=== PATIENT | male | born 1975 | race African-American/Black ===

== ENCOUNTER 2017-11-06 09:13 | Inpatient (IN) | payer SELFPAY ==
[2017-11-06] MEDS ORDERED: NITROGLYCERIN OINT 1 INCH/GM PACKET TOPICAL STA (09:17)
[2017-11-06] MEDS ORDERED: NITROGLYCERIN SL TABS 0.4 MG TAB SUBLINGUAL PRN (09:27)
--- NOTE | 2017-11-06 09:27 | ED ---
General Adult HPI - General Stated complaint: chest pain Time Seen by Provider: 11/06/17 09:13 Source: RN notes reviewed - History of Present Illness Initial comments: Is a 42-year-old male who has a past medical history significant for smoking and high blood pressure. Patient also has a family history is positive both mother and father had heart disease. Patient comes to the emergency department at [facility] with chest pain which she states is been ongoing intermittently over the last couple of weeks. Patient states the pain normally last 5-10 minutes but today it made him very sweaty and short of breath and it got worse with walking so he sat down and rested. Patient is on his way to the hospital pain even got worse. Patient showed up to [facility] for an abnormal EKG cardiology was called they agreed that it was an abnormal EKG and monitor the patient over to [facility] ER so that the patient could be admitted and taken to the [facility]. Patient currently is chest pain-free patient denies any recent fever chills per patient denies any abdominal pain patient denies any nausea. Review of Systems ROS Statement: Those systems with pertinent positive or pertinent negative responses have been documented in the HPI. ROS Other: All systems not noted in ROS Statement are negative. General Exam - General Exam Comments Initial Comments: GENERAL: Patient is well-developed and well-nourished. Patient is nontoxic and well- hydrated and is in no acute distress. ENT: Neck is soft and supple. No significant lymphadenopathy is noted. Oropharynx is clear. Moist mucous membranes. Neck has full range of motion without eliciting any pain. EYES: The sclera were anicteric and conjunctiva were pink and moist. Extraocular movements were intact and pupils were equal round and reactive to light. Eyelids were unremarkable. PULMONARY: Unlabored respirations. Good breath sounds bilaterally. No audible rales rhonchi or wheezing was noted. CARDIOVASCULAR: There is a regular rate and rhythm without any murmurs gallops or rubs. ABDOMEN: Soft and nontender with normal bowel sounds. No palpable organomegaly was noted. There is no palpable pulsatile mass. SKIN: Skin is clear with no lesions or rashes and otherwise unremarkable. NEUROLOGIC: Patient is alert and oriented x3. Cranial nerves II through XII are grossly intact. Motor and sensory are also intact. Normal speech, volume and content. Symmetrical smile. MUSCULOSKELETAL: Normal extremities with adequate strength and full range of motion. No lower extremity swelling or edema. No calf tenderness. LYMPHATICS: No significant lymphadenopathy is noted PSYCHIATRIC: Normal psychiatric evaluation. Medical Decision Making - Medical Decision Making EKG shows normal sinus rhythm at 60 bpm AZ interval 290 QRS is 82 QT interval 372 QTC is 395 EKG shows inverted T waves in the inferior leads as well as precordial leads V4 through V6. I spoke with cardiology Dr. Tanner he came down to see the patient almost immediately in the emergency department Disposition Clinical Impression: Unstable angina pectoris Disposition: ADMITTED IP TO THIS HOSP Referrals: None,Stated [Primary Care Provider] - 1-2 days Time of Disposition: 09:27
[2017-11-06 10:59] LABS: Creatine Kinase 389 U/L (55-170)
[2017-11-06 11:10] LABS: Creatine Kinase MB 0.9 ng/mL (0.0-2.4); Troponin I <0.012 ng/mL (0.000-0.034)
[2017-11-06] MEDS ORDERED: MIDAZOLAM 2 MG/2 ML VIAL ONE (11:19)
[2017-11-06] MEDS ORDERED: fentaNYL (PF) 50 MCG/ML 2 ML AMP ONE (11:19)
[2017-11-06] MEDS ORDERED: LIDOCAINE 1% INJ 10MG/ML (20 ML MDV) ONE (11:19)
[2017-11-06] MEDS ORDERED: SODIUM CHLORIDE 0.9% 1,000 ML IV ONE (11:25)
[2017-11-06] MEDS ORDERED: MIDAZOLAM 2 MG/2 ML VIAL IV ONE (11:34)
[2017-11-06] MEDS ORDERED: fentaNYL (PF) 50 MCG/ML 2 ML AMP IV ONE (11:34)
[2017-11-06] MEDS ORDERED: LIDOCAINE 1% INJ 10MG/ML (20 ML MDV) SQ ONE (11:36)
--- NOTE | 2017-11-06 11:47 | CONS ---
CONSULTATION DATE OF SERVICE: 11/06/2017. HISTORY: Mr. Gaffney is a 42-year-old gentleman who was transferred from [facility]. The patient has been having intermittent chest discomfort for last 2 to 3 weeks. The pain is in the substernal area and lasts for 10 to 15 minutes. It is associated with diaphoresis and he feels his heart is racing. This morning the patient had more severe chest discomfort as well as heart racing and diaphoretic. The patient was brought to [facility] Emergency Room. EKG showed T-wave inversions in the inferolateral leads with minimal J-point elevation in V3 and V4. The EKG was quite concerning. In view of that, the patient was transferred to [facility] for further evaluation with cardiac catheterization. The patient at present is comfortable. He has a history of hypertension. Denies any history of diabetes. He does smoke. Denies any history of illicit drug use. There is a family history of diabetes, patient's father did have a heart attack. PAST MEDICAL HISTORY: No history of any major surgeries. REVIEW OF THE SYSTEMS: Unremarkable. There is no history of any GI bleeding. MEDICATIONS: None. PHYSICAL EXAMINATION: At present reveals a 42-year-old gentleman who does not appear to be in any acute distress. The patient's blood pressure is 140/80 mmHg. HEENT examination is negative. Neck is supple. There is no increase in jugular venous pressure. Both the carotid pulses are felt. There is no bruit. Chest is symmetrical. Heart, the PMI is not felt. First heart sound is normal, second heart sound is widely physiologically split. Lungs are clinically clear to auscultation and percussion. Abdomen is negative. Extremities, peripheral pulsations are 2+. LABORATORY AND DIAGNOSTIC DATA: Initial troponin is negative. The creatinine is normal. EKG shows T-wave inversions in the inferolateral leads with a minimal J-point elevation in V3 and V4. IMPRESSION: 1. Recurrent chest discomfort with abnormal EKG suggestive of unstable angina, rule out non-Q-wave myocardial infarction. 2. History of hypertension. PLAN: In view of the significant EKG changes, the patient is advised urgent cardiac catheterization. The procedure and risks were fully explained to the patient and and they understand well. MMODL / IJN: [id number] /
[2017-11-06] MEDS ORDERED: IOPAMIDOL-370 125ML BTL INJ ONE (11:52)
[2017-11-06] MEDS ORDERED: IOPAMIDOL-370 50ML BTL INJ ONE (11:53)
--- NOTE | 2017-11-06 12:23 | CC ---
CARDIAC CATHETERIZATION REPORT DATE OF SERVICE: 11/06/2017. HISTORY: Mr. Gaffney is a 42-year-old gentleman who went to the [facility] Emergency room with a complaint of intermittent chest discomfort, heart racing, and palpitations associated with diaphoresis. This morning the patient had an episode for about 45 minutes. EKG showed diffuse T-wave inversions in the inferolateral leads. No prior EKG was available. He has a history of hypertension, but he does not take any medications. In view of that, the patient was recommended to have a cardiac catheterization for definitive diagnosis. PROCEDURE: The right groin was prepped and draped in the usual manner and the skin was infiltrated with 2% Xylocaine. The right femoral artery was entered using Seldinger technique. A #6- Italian sheath was placed in. Selective coronary angiography was then performed in multiple projections and left ventriculography was performed. The patient tolerated the procedure well. Moderate sedation was used. Total sedation time was 25 minutes. The left ventricular end-diastolic pressure was 12 to 16 mmHg prior to angiography. No gradient is noted across the aortic valve. SELECTIVE CORONARY ANGIOGRAPHY: 1. Left main coronary artery is normal and patent. 2. LAD is a good caliber blood vessel and gives rise to 2 good-sized diagonal branches. LAD and its branches are normal. 3. Circumflex coronary artery gives rise to a high obtuse marginal branch. It is normal. 4. Right coronary artery is dominant in distribution and gives rise to good-sized PDA branch. 5. Right coronary artery and its branches are normal. HEMODYNAMICS: Left ventricular end-diastolic pressure was 8 to 12 mmHg. No intracavitary gradient was noted. Left ventriculography revealed ejection fraction of 60%. RECOMMENDATIONS: This study does not show any significant coronary artery disease. Continue medical treatment and risk factor modification. MMODL / IJN: [id number] /
[2017-11-06] MEDS: NITROGLYCERIN OINT 1 INCH/GM PACKET TOPICAL SCH ×2 (12:38→17:39)
[2017-11-06] MEDS ORDERED: RX INFO: IV CONTRAST WAS GIVEN 1 EACH MISC MISCELLANE PRN (13:11)
--- NOTE | 2017-11-06 14:18 | P.HPIM ---
History of Present Illness H&P Date: 11/06/17 Chief Complaint: chest pain Patient is a 42-year-old -[place] male with a past medical history of hypertension, not currently on treatment, tobacco abuse, and alcohol use who initially presented to [facility] with complaints of chest pain. There he underwent extensive evaluation. His initial laboratory analysis was unremarkable and his troponin was less than 0.017. EKG showed T-wave inversion. Cardiology was contacted and asked The patient transferred here. On arrival here he was chest pain free. Arrangements were made for admission. He underwent a heart cath for possible unstable angina which did not show any significant coronary artery disease. He has been admitted to the selective care unit. Patient seen and examined at bedside. He reports 2 weeks of on and off chest pain lasting approximately 5 minutes. Today he woke up with retrosternal chest pain without radiation. It was associated with shortness of breath and palpitations. He tried to lay back down to see if it past and it did not. He felt anxious and like he needed to calm down. He then tried to walk outside to calm down. He became diaphoretic and felt dizzy and lightheaded. He also had was having shortness of breath. He states that moving exacerbated his symptoms. Today his chest pain lasted approximately 30 minutes and was more intense than he had ever experienced. He does report that he has difficulty with acid reflux approximately every day to every other day. He denies any recent cough, cold, fever, flu, nausea, vomiting, diarrhea, or dysuria. He did have some constipation this week and took magnesium citrate which resolved the issue. He was diagnosed with high blood pressure several years ago but due to a change in job he stopped his medications approximately one year ago. He has a family history of diabetes and his father suffered a myocardial infarction. He is currently chest pain-free and feels comfortable. Review of Systems Pertinent positives and negatives as discussed in HPI, a complete review of systems was performed and all other systems are negative. Past Medical History Past Medical History: Hypertension History of Any Multi-Drug Resistant Organisms: None Reported Past Surgical History: No Surgical Hx Reported Past Psychological History: No Psychological Hx Reported Smoking Status: Current every day smoker Past Alcohol Use History: Heavy Past Drug Use History: None Reported Additional History: Lives with his fiance, works at a factory, smokes approximately one pack daily and drinks alcohol 2-3 times weekly. - Past Family History Father Family Medical History: Diabetes Mellitus, Myocardial Infarction ([place]) Mother Family Medical History: Diabetes Mellitus Brother(s) Family Medical History: Diabetes Mellitus Medications and Allergies Home Medications Medication Instructions Recorded Confirmed Type No Known Home Medications 11/06/17 11/06/17 History Allergies Allergy/AdvReac Type Severity Reaction Status Date / Time No Known Allergies Allergy Verified 11/06/17 11:50 Physical Exam Osteopathic Statement: *. No significant issues noted on an osteopathic structural exam other than those noted in the History and Physical/Consult. Vitals: Vital Signs Temp Pulse Pulse Resp BP BP Pulse Ox 11/06/17 12:09 98.4 F 68 138/98 97 11/06/17 09:14 97.8 F 75 20 135/94 96 Intake and Output 11/05/17 11/06/17 11/06/17 22:59 06:59 14:59 Intake Total 120 Output Total 1 Balance 119 Intake: IV 100 Intake, IV Titration 20 Amount Sodium Chloride 0.9% 1, 20 000 ml @ 0 mls/hr IV .[facility] [employer] ONE Rx#:[id number] Output: Urine 1 Other: Weight 88.451 kg General: non toxic, no distress, appears at stated age, normal weight Derm: no unusual rashes/lesions no unusual ecchymoses, warm, dry Head: atraumatic, normocephalic, symmetric Eyes: EOMI, no lid lag, anicteric sclera, pupils equal round reactive to light ENT: Nose and ears atraumatic, no thrush, no pharyngeal erythema Neck: No thyromegaly, no cervical lymphadenopathy, trachea midline, supple Mouth: no lip lesion, mucus membranes moist Cardiovascular: S1S2 reg, no murmur, positive posterior tibial pulse bilateral, no edema, capillary refill less than 2 seconds Lungs: CTA bilateral, no rhonchi, no rales , no accessory muscle use Abdominal: soft, nontender to palpation, no guarding, no appreciable organomegaly, normal bowel sounds Ext: no gross muscle atrophy, muscle strength 5 out of 5 in all 4 extremities grossly, no contractures, Neuro: CN II-XI grossly intact, light touch intact all 4 extremities, finger to nose within normal limits, Psych: Alert, oriented, appropriate affect Results Labs: Abnormal Lab Results - Last 24 Hours (Table) 11/06/17 Range/Units 10:09 Total Creatine Kinase 389 H (55-170) U/L Comments: Laboratory work from [facility] on 11/06/17 reviewed and within normal limits. Chest x-ray: report reviewed Thrombosis Risk Factor Assmnt - DVT/VTE Prophylaxis DVT/VTE Prophylaxis: Low risk, early ambulation encouraged Assessment and Plan Assessment: Chest pain -Cardiac cath without significant disease -Check cholesterol in a.m. -Aspirin, metoprolol -Serial troponins -Telemetry GERD -Initiate PPI, suggests six-week trial. Tobacco abuse -Cessation -Nicotine replacement Obesity with BMI 30.5 -Structured outpatient weight loss Family history diabetes -Check basic metabolic profile after cath in a.m. which will contain a fasting glucose. This is elevated consider further workup. The patient is placed in observation with an anticipated less than 2 per night stay for evaluation of chest pain. Surrogate decision-maker: Robert Flores CODE STATUS:Full DVT prophylaxis: early ambulation Discussed with: Patient, nursing, ED physician Anticipated discharge date: 11/07/[address]: home A total of 55 minutes was spent on the care of this complex patient more than 50 % of the time was spent in counseling and care coordination.
--- NOTE | 2017-11-06 16:18 | XR ---
EXAMINATION TYPE: XR chest 1V portable DATE OF EXAM: 11/06/2017 COMPARISON: 12/30/2014 HISTORY: Chest pain TECHNIQUE: Single frontal view of the chest is obtained. FINDINGS: There is no focal air space opacity, pleural effusion, or pneumothorax seen. The cardiac silhouette size is upper limits of normal. The osseous structures are intact. IMPRESSION: No acute cardiopulmonary process.
[2017-11-06 16:26] LABS: Creatine Kinase 315 U/L (55-170)
[2017-11-06 16:39] LABS: Creatine Kinase MB 0.9 ng/mL (0.0-2.4); Troponin I <0.012 ng/mL (0.000-0.034)
[2017-11-06] MEDS: PANTOPRAZOLE 40 MG TABLET PO SCH (17:38)
[2017-11-06] MEDS: METOPROLOL TARTRATE 25 MG TAB PO SCH ×2 (17:40→21:33)
[2017-11-06 19:12] VITALS: BMI 30.5
[2017-11-07 07:54] LABS: Anion Gap 4 mmol/L; Blood Urea Nitrogen 15 mg/dL (9-20); Calcium 9.7 mg/dL (8.4-10.2); Carbon Dioxide 30 mmol/L (22-30); Chloride 106 mmol/L (98-107); Cholesterol 149 mg/dL (<200); Glucose 97 mg/dL (74-99); HDL Cholesterol 38 mg/dL (40-60); LDL Cholesterol,Calculated 99 mg/dL (0-99); Potassium 5.6 mmol/L (3.5-5.1); Sodium 140 mmol/L (137-145); Triglycerides 62 mg/dL (<150)
[2017-11-07] MEDS: PANTOPRAZOLE 40 MG TABLET PO SCH (08:14)
[2017-11-07] MEDS: METOPROLOL TARTRATE 25 MG TAB PO SCH (08:15)
[2017-11-07] MEDS ORDERED: NICOTINE 14MG/24HR PATCH TRANSDERM SCH (09:00)
[2017-11-07] MEDS ORDERED: ASPIRIN 325 MG TAB PO SCH (09:00)
[2017-11-07 09:25] VITALS: BP 129/75; PULSE 61; RESP 18; TEMP 98.3
--- NOTE | 2017-11-07 10:51 | P.DS ---
Providers Date of admission: 11/06/17 09:27 Attending physician: Gabriella Bear DO Consults: 11/06/17 09:27 Consult Physician Urgent Consulting Provider: [facility] Consult Reason/Comments: Unstable angina Do you want consulting provider notified?: Yes Primary care physician: Stated None - Discharge Diagnosis(es) (1) Chest pain Patient was admitted with the chest pain. He underwent cardiac catheterization that didn't show any evidence of coronary artery disease. His chest pain was not present during this hospitalization. He denied any shortness of breath or leg swelling. He describes lower sternal turning chest discomfort especially with food and if eating spicy food and laying down. In view that we discuss option of having reflex and possibly esophageal spasms. During the hospitalization pain completely resolved and he did not have any further difficulties. Patient was discharged home in view of this chest pain. Advised to take PPI and antacids and to follow-up with primary care physician. If this reflux heartburns don't resolve in 2-3 weeks with PPI consider further follow- up with gastroenterology. Current Visit: Yes Status: Acute (2) GERD (gastroesophageal reflux disease) Patient has strong heartburn sensation especially after eating food and laying down. He was given PPI and Tums as needed. He was advised to keep upright position at least 1 hour after eating and avoid food that provokes heartburns. If his heartburns pain do not improve in 2-3 weeks he was advised to discuss this further with gastroenterology for possible EGD Current Visit: Yes Status: Acute (3) Hypertension Patient was started on metoprolol which he tolerated very well. Side effects of metoprolol was discussed with the patient's. He was advised to follow-up with PCP as soon as possible and be provided details for free clinic for now until his insurance begins. He was advised to follow-up since he will need workup for secondary hypertension in the office. Current Visit: Yes Status: Acute (4) Anxiety Patient reports a history of anxiety anxiety attacks that also accompanied by chest pain and difficulty catching breath. He was advised to subluxation techniques. He is to follow-up with PCP for further management Current Visit: Yes Status: Acute Hospital Course: This is a 42-year-old male who was admitted with chest pain. He reported 2 weeks of lower retrosternal epigastric discomfort burning like heartburn sensation that The usually after eating some spicy food and very often in the middle of night is laying down. He's been trying some Tums with some relief but not complete relief. When he came to the hospital on that day the patient was more severe and more spasm like he describes. He denies any shortness of breath leg swelling nausea vomiting difficulty swallowing food pain with swallowing food On the day of discharge patient was seen and evaluated in the room and his fianc was present. He did not report any further pain or discomfort and we had a lengthy discussion about his heartburn symptoms and need for follow-up regarding his hypertension. Physical examination he was awake alert oriented testing) distress Head and neck examination was remarkable there was no JVD or masses or any masses or lesions in his mouth Lungs clear to auscultation bilaterally Cardiovascular: Regular rhythm and rate S1-S2 no murmurs rubs or gallops Abdomen: Soft nontender nondistended no epigastric tenderness no rebound no masses Extremities: No peripheral edema clubbing or cyanosis Disposition: Patient discharged home in stable condition and is to follow-up with his primary care physician as discussed Pertinent Studies: Cardiac catheterization that did not show any signs of bruising or any presence of coronary artery disease Troponins negative 3 EKG unremarkable Patient Condition at Discharge: Good Plan - Discharge Summary Discharge Rx Participant: No New Discharge Prescriptions: New Metoprolol Tartrate [Lopressor] 25 mg PO BID #20 tab Nicotine 14Mg/24Hr Patch [Habitrol] 1 patch TRANSDERM DAILY #7 patch Omeprazole 20 mg PO DAILY #30 tablet. Discharge Medication List Metoprolol Tartrate [Lopressor] 25 mg PO BID #20 tab 11/07/17 [Rx] Nicotine 14Mg/24Hr Patch [Habitrol] 1 patch TRANSDERM DAILY #7 patch 11/07/17 [ Rx] Omeprazole 20 mg PO DAILY #30 tablet. 11/07/17 [Rx] Follow up Appointment(s)/Referral(s): [facility]STA[facility]] - 1 Week Emanuel Tannre MD [STAFF PHYSICIAN] - 1 Week (Spoke to clerical receptionist. Office will call with appointment time) Patient Instructions/Handouts: *Surgery [facility] - After Heart Catheterization - [employer] Instructions, Left Heart Catheterization (DC) Activity/Diet/Wound Care/Special Instructions: resume preadmission diet and activity keep upright position at least 1 hr after eating Care Plan Goals (MU): obtaining insurance and follow up with PCP Discharge Disposition: HOME SELF-CARE
[2017-11-07] MEDS ORDERED: SODIUM POLYSTYRENE SULFONATE 15 GM/60 ML BOTTLE PO ONE (11:34)
[2017-11-07 11:59] LABS: Glucose,Whole Blood 82 mg/dL (75-99)
--- NOTE | 2017-11-07 12:14 | ECHOF ---
Referral Reason:chf MEASUREMENTS -------- HEIGHT: 170.2 cm WEIGHT: 88.5 kg BP: 105/61 RVIDd: 3.5 cm (< 3.3) IVSd: 1.5 cm (0.6 - 1.1) LVIDd: 4.1 cm (3.9 - 5.3) LVPWd: 1.4 cm (0.6 - 1.1) IVSs: 1.9 cm LVIDs: 2.9 cm LVPWs: 1.4 cm LA Diam: 3.4 cm (2.7 - 3.8) LAESV Index (A-L): 29.73 ml/m Ao Diam: 3.6 cm (2.0 - 3.7) AV Cusp: 2.5 cm (1.5 - 2.6) MV EXCURSION: 20.651 mm (> 18.000) MV EF SLOPE: 98 mm/s (70 - 150) EPSS: 0.5 cm MV E Suleman: 0.71 m/s MV DecT: 273 ms MV A Suleman: 0.60 m/s MV E/A Ratio: 1.18 RAP: 5.00 mmHg RVSP: 19.00 mmHg FINDINGS -------- Sinus rhythm. This was a technically good study. The left ventricular size is normal. There is moderate concentric left ventricular hypertrophy. O verall left ventricular systolic function is normal with, an EF between 60 - 65 %. The right ventricle is mildly enlarged. LA is midly dilated 29-33ml/m2. The right atrium is normal in size. The aortic valve is trileaflet and appears structurally normal. The mitral valve leaflets are mildly thickened. There is trace to mild mitral regurgitation. Mild tricuspid regurgitation present. Right ventricular systolic pressure is normal at < 35 mmHg. Trace/mild (physiologic) pulmonic regurgitation. The aortic root size is normal. Normal inferior vena cava with normal inspiratory collapse consistent with estimated right atrial pre ssure of 5 mmHg. There is no pericardial effusion. CONCLUSIONS -------- 1. Sinus rhythm. 2. This was a technically good study. 3. The left ventricular size is normal. 4. There is moderate concentric left ventricular hypertrophy. 5. Overall left ventricular systolic function is normal with, an EF between 60 - 65 %. 6. The right ventricle is mildly enlarged. 7. LA is midly dilated 29-33ml/m2. 8. The right atrium is normal in size. 9. The aortic valve is trileaflet and appears structurally normal. 10. The mitral valve leaflets are mildly thickened. 11. There is trace to mild mitral regurgitation. 12. Mild tricuspid regurgitation present. 13. Right ventricular systolic pressure is normal at < 35 mmHg. 14. Trace/mild (physiologic) pulmonic regurgitation. 15. The aortic root size is normal. 16. Normal inferior vena cava with normal inspiratory collapse consistent with estimated right atrial pressure of 5 mmHg. 17. There is no pericardial effusion. MOLECULAR BIOLOGIST: Ruth Carrillo RDCS
--- NOTE | 2017-11-07 12:28 | P.PN ---
Subjective Progress Note Date: 11/07/17 This is a 42-year-old -[place] gentleman with history of hypertension, nicotine dependence, who presented to the hospital with symptoms of chest discomfort. He underwent a cardiac catheterization yesterday by Dr. VC Tanner which did not reveal any significant obstructive coronary artery disease. This morning, denied any chest pain or difficulty in breathing. He's been up ambulating without any difficulty. Objective - Vital Signs Vital signs: Vital Signs Temp 98.3 F 11/07/17 08:00 Pulse 61 11/07/17 08:00 Resp 18 11/07/17 08:00 BP 129/75 11/07/17 08:00 Pulse Ox 99 11/07/17 08:00 Intake & Output 11/06/17 11/07/17 11/07/17 18:59 06:59 18:59 Intake Total 480 660 240 Output Total 1 Balance 479 660 240 Weight 88.451 kg Intake: IV 100 Intake, IV Titration 20 180 Amount Sodium Chloride 0.9% 1, 20 180 000 ml @ 0 mls/hr IV .[employer] ONE Rx#:[id number] Oral 360 480 240 Output: Urine 1 Other: Voiding Method Toilet # Voids 6 - Exam PHYSICAL EXAMINATION: GENERAL: 42-year-old -[place] gentleman in no acute distress at the time of my examination HEENT: Head is atraumatic, normocephalic. Pupils equal, round. Sclera anicteric. Conjunctiva are clear. Mucous membranes of the mouth are moist. Neck is supple. There is no elevated jugular venous pressure.] bruit is heard. HEART EXAMINATION: Heart S1, S2 normal. No murmur or gallop heard. CHEST EXAMINATION: Lungs are clear to auscultation and precussion. No chest wall tenderness is noted on palpation or with deep breathing. ABDOMEN: Soft, nontender. Bowel sounds are heard. No organomegaly noted. EXTREMITIES: 2+ peripheral pulses with no evidence of peripheral edema and no calf tenderness noted. Right groin soft, no evidence of any hematoma. NEUROLOGIC patient is awake, alert and oriented ?-3. . - Labs CBC & Chem 7: 11/07/17 06:53 Labs: Abnormal Lab Results - Last 24 Hours (Table) 11/06/17 11/07/17 Range/Units 15:39 06:53 Potassium 5.6 H (3.5-5.1) mmol/L Total Creatine Kinase 315 H (55-170) U/L HDL Cholesterol 38 L (40-60) mg/dL Assessment and Plan Plan: Assessment and plan #1 chest pain, status post cardiac catheterization which revealed nonobstructive coronary artery disease. #2 nicotine dependence #3 hypertension Plan From cardiology's perspective, patient may be able to be discharged home today. We will make him a follow-up appointment to see Dr. VC Tanner in the office post discharge. DNP note has been reviewed, I agree with a documented findings and plan of care. Patient was seen and examined.
[2017-11-07] MEDS ORDERED: LISINOPRIL 10 MG TAB PO SCH (13:15)
[2017-11-07] MEDS ORDERED: METOPROLOL TARTRATE 50 MG TAB PO SCH (21:00)
== END 2017-11-07 14:04 | disposition home or self-care (01) | DRG 287 ==
LOC: EC 09:13 → 6SEL 09:27
PROVIDERS: ADMIT Internal Medicine; ATTEND Internal Medicine
PROC: B2111ZZ Fluoroscopy of Multiple Coronary Arteries using Low Osmolar Contrast (ICD-10-PCS; principal; 2017-11-06 11:10)
PROC: B2151ZZ Fluoroscopy of Left Heart using Low Osmolar Contrast (ICD-10-PCS; principal; 2017-11-06 11:10)
PROC: 4A023N7 Measurement of Cardiac Sampling and Pressure, Left Heart, Percutaneous Approach (ICD-10-PCS; principal; 2017-11-06 11:10)
DX: R07.9 Chest pain, unspecified (principal); E66.9 Obesity, unspecified; F17.200 Nicotine dependence, unspecified, uncomplicated; F41.9 Anxiety disorder, unspecified; I10 Essential (primary) hypertension; K21.9 Gastro-esophageal reflux disease without esophagitis; Z68.30 Body mass index [BMI] 30.0-30.9, adult; Z82.49 Family history of ischemic heart disease and other diseases of the circulatory system; Z83.3 Family history of diabetes mellitus
CPT/HCPCS: 71045; 80048; 80061; 82550; 82553; 84484; 85379; 93005; 93306; 93458; 99285

== ENCOUNTER 2022-12-29 13:10 | Day surgery (SDC) | payer BC ==
[2022-12-29] MEDS ORDERED: ALPRAZolam 0.5 MG TAB PO STA (13:32)
[2022-12-29 13:45] VITALS: BP 124/65; PULSE 73; RESP 16; TEMP 97.5
--- NOTE | 2022-12-29 14:29 | US ---
ULTRASOUND GUIDED FNA LEFT NECK MASS: CLINICAL HISTORY: Enlarged left supraclavicular lymph node FINDINGS: Preliminary imaging demonstrated only a small 6 mm short axis lymph node with a normal fatty hilum. T he patient stated that the suspected lymph node\palpable abnormality had markedly decreased in size s markos his previous visit with referring clinician. No sizable mass was seen for percutaneous biopsy IMPRESSION: 1. Discontinued left neck biopsy due to no sizable lesion identified.
== END 2022-12-29 14:15 | disposition home or self-care (01) ==
LOC: RADPROMAIN 13:10
PROVIDERS: ATTEND Surgery
DX: R22.1 Localized swelling, mass and lump, neck (principal); Z53.9 Procedure and treatment not carried out, unspecified reason
CPT/HCPCS: 76536